=== PATIENT | female | born 1925 | race Caucasian/White ===

== ENCOUNTER 2017-05-23 16:03 | Emergency (ER) | payer MEDICARE, OTHER ==
[~2017-05-23] VITALS: Ht 165.1 cm; Wt 62.0 kg
[~2017-05-23 16:03] MED LIST: CLIN-73 PO; DILT180C PO; HYDR-3498 PO; LORA-444 PO; METO-448 PO; RIVA20TA PO; TRAM-40 PO
[2017-05-23 16:09] VITALS: Ht 165.1 cm; Wt 62.0 kg
[2017-05-23] MEDS ORDERED: HYDROCODONE/APAP (5/325) TAB PO ONE (17:30)
[2017-05-23] MEDS ORDERED: CHOL200073 PO (18:03)
[2017-05-23] MEDS ORDERED: ANAS1TAB PO (18:03)
[2017-05-23] MEDS ORDERED: DILT180C94 PO (18:04)
[2017-05-23] MEDS ORDERED: MAGN400T28 PO (18:05)
[2017-05-23] MEDS ORDERED: LORA-444 PO (18:05)
[2017-05-23] MEDS ORDERED: PROP225T2 PO (18:06)
[2017-05-23] MEDS ORDERED: ASCO500C7 PO (18:07)
[2017-05-23] MEDS ORDERED: CALC600T24 PO (18:08)
[2017-05-23] MEDS ORDERED: RIVA20TA PO (18:09)
[2017-05-23] MEDS ORDERED: VITAMIN E PO (18:09)
--- NOTE | 2017-05-23 18:20 | RADRPT ---
PROCEDURE: XR Left Foot. CLINICAL INDICATION: Trauma to left foot. Pain. TECHNIQUE: AP, lateral and oblique views of the left foot was obtained. The images were reviewed on a PACS workstation. COMPARISON: None. FINDINGS: The bones of the foot appear intact, with no evidence of fracture, dislocation, or subluxation. Hallux valgus and bunion. Demineralization limits evaluation of fine osseous detail. No significant soft tissue swelling is seen. Plantar calcaneal enthesophyte. IMPRESSION: Demineralization, without acute fracture. RPTAT: [facility] Physician Atif Date Time Electronically viewed and signed by Physician Atif on 05/23/2017 18:20 RS/
[2017-05-23] MEDS ORDERED: TRAM50TA2 PO (18:28)
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
[2017-05-23] MEDS ORDERED: AMLO-218 PO (18:50)
[2017-05-23 18:56] VITALS: BP 180/82; PULSE 80; RESP 16
[2017-05-23] MEDS ORDERED: NICARDipine HCL 30 MG CAPSULE PO ONE (19:00)
== END 2017-05-23 19:00 | disposition home or self-care (01) ==
LOC: E/R 16:03
DX: S90.32XA Contusion of left foot, initial encounter (principal); W20.8XXA Other cause of strike by thrown, projected or falling object, initial encounter; Y92.9 Unspecified place or not applicable; Z79.01 Long term (current) use of anticoagulants